=== PATIENT | female | born 1965 | race Caucasian/White ===

== ENCOUNTER 2021-05-13 05:38 | Day surgery (SDC) | payer OTHER, SELFPAY ==
[~2021-05-13] VITALS: Ht 160 cm; Wt 68.9 kg
[2021-05-13] MEDS ORDERED: LIDOCAINE 2% 100 MG/5 ML UJET TP ONE (07:40)
[2021-05-13] MEDS ORDERED: fentaNYL citrate 0.05 MG/ML VIAL ONE (07:40)
[2021-05-13] MEDS: fentaNYL citrate 0.05 MG/ML VIAL IVP ONE (08:05)
[2021-05-13] MEDS: LIDOCAINE 2% 100 MG/5 ML UJET TP ONE (08:12)
== END 2021-05-13 09:13 | disposition home or self-care (01) ==
LOC: MDS 05:38 → MMU 05:42 → MDS 09:13
PROVIDERS: ATTEND Internal Medicine Gastroenterology
DX: Z12.11 Encounter for screening for malignant neoplasm of colon (principal); Z20.822 Contact with and (suspected) exposure to COVID-19
CPT/HCPCS: 45378; 87426; J3010